=== PATIENT | female | born 1980 | race African-American/Black ===

== ENCOUNTER 2024-04-29 13:10 | Emergency (ER) | payer SELFPAY ==
[2024-04-29] MEDS ORDERED: HYDROcodone/Acetaminophen 5/325 mg Tablet ONE (14:00)
== END 2024-04-29 14:00 | disposition home or self-care (01) ==
LOC: ERS 13:10
DX: K04.7 Periapical abscess without sinus (principal); J45.909 Unspecified asthma, uncomplicated
CPT/HCPCS: 99282

== ENCOUNTER 2024-05-11 23:17 | Emergency (ER) | payer SELFPAY ==
[2024-05-11] MEDS ORDERED: HYDROcodone/Acetaminophen 5/325 mg Tablet ONE (23:42)
== END 2024-05-12 00:27 | disposition home or self-care (01) ==
LOC: ERS 23:17
DX: K08.89 Other specified disorders of teeth and supporting structures (principal)
CPT/HCPCS: 99282